=== PATIENT | male | born 1945 | race Caucasian/White ===

== ENCOUNTER 2017-11-27 08:26 | Inpatient (IN) | payer OTHER ==
[~2017-11-27] VITALS: Ht 182.9 cm; Wt 83.5 kg
--- NOTE | 2017-11-27 09:45 | ED UPPER/LOWER EXTREMITY COMPL ---
History of Present Illness General Chief Complaint: Upper Extremity Problem Stated Complaint: ELBOW PAIN Source: patient Exam Limitations: no limitations Allergies Coded Allergies: No Known Allergies (11/27/17) Reconcile Medications Sulfamethoxazole/Trimethoprim (Sulfamethoxazole-Tmp Ds Tablet) (Unknown Strength ) TABLET (Unknown Dose) . (Reported) Triage Note: LEFT ELBOW PAIN AND REDNESS. STATES HE WENT ON A [address] AND HAD HIS ARM ON THE WINDOW THE ENTIRE TIME. AFTERWARDS THE ARM BECAME RED AND PAINFUL. WENT TO WALK IN ON THE AND TRIED TO DRAIN IT BUT GOT LITTLE FLUID AND RX'D WITH BACTRIM. STATES HE HAS BEEN ON THE BACTRIM SINCE SATURDAY NIGHT. STATES IT HAS GOTTEN MORE REDNESS WITH SWELLING Triage Nurses Notes Reviewed? yes Onset: Gradual Duration: day(s): Timing: recent history Severity: moderate Pain/Injury Location: Left: Elbow. HPI: 72yo male presents to ED complaining of painful swelling to left elbow with surrounding redness worsening over the past 2 days. Patient states that he went on a long trip and had his left arm resting on the window and believes the symptoms started after this. Patient was seen in urgent care 2 days ago, swelling to elbow was drained with minimal fluid drained. Patient was started on Bactrim antibiotics. Patient reports increasing redness to the skin above and below elbow swelling since Saturday. Patient describes area as painful and warm. Patient also reporting generalized weakness for 2 days. Patient denies fevers, chills, malaise, vomiting, abdominal pain. (Magi LUTHER,Bhavna Mclaughlin) Vital Signs & Intake/Output Vital Signs & Intake/Output Vital Signs Date Time Temp Pulse Resp B/P B/P Pulse O2 O2 Flow FiO2 Mean Ox Delivery Rate 11/27 1116 99.9 65 20 155/74 97 Room Air 11/27 0838 99.6 71 20 131/93 97 Room Air (Sadie ALONSO,Norman Lorenzo) Past History Travel History Traveled to [place] past 21 day No Medical History Any Pertinent Medical History? none Tetanus Vaccine: Surgical History Surgical History: non-contributory Psychosocial History What is your primary language Japanese Tobacco Use: Quit >30 days ago ETOH Use: occasional use Illicit Drug Use: denies illicit drug use Family History Hx Contributory? No (Magi LUTHER,Bhavna Mclaughlin) Review of Systems Review of Systems Constitutional: Reports: see HPI. EENTM: Reports: no symptoms. Respiratory: Reports: no symptoms. Cardiovascular: Reports: no symptoms. Gastrointestinal/Abdominal: Reports: no symptoms. Genitourinary: Reports: no symptoms. Musculoskeletal: Reports: see HPI. Skin: Reports: see HPI. Neurological/Psychological: Reports: no symptoms. Hematologic/Endocrine: Reports: no symptoms. Immunological: Reports: no symptoms. All Other Systems: Reviewed and Negative (Magi LUTHER,Bhavna Mclaughlin) Physical Exam Physical Exam General Appearance: well developed/nourished, no apparent distress, alert, awake Head: atraumatic, normal appearance Eyes: Bilateral: normal appearance. Ears, Nose, Throat: hearing grossly normal Neck: normal inspection, supple, full range of motion Cardiovascular/Respiratory: normal breath sounds, normal peripheral pulses, regular rate/rhythm, no respiratory distress Peripheral Pulses: 2+ radial (R), 2+ radial (L) Back: normal inspection, normal range of motion Shoulder Left: normal range of motion, normal inspection Shoulder Right: normal range of motion, normal inspection Elbow Left: +swelling, erythema, tenderness, and fluctuance to posterior elbow with surrounding erythema and warmth to upper arm and forearm Elbow Right: normal range of motion, normal inspection Hand Left: mild swelling to hand present without significant erythema Hand Right: normal inspection, normal range of motion Neurologic/Tendon: normal sensation, normal motor functions, normal tendon functions Skin: see LUE exam above (Magi LUTHER,Bhavna Mclaughlin) Progress Differential Diagnosis: cellulitis, contusion, gout, septic arthritis, bursitis, osteomyelitis Diagnostic Imaging: Viewed by Me: Radiology Read. Discussed w/RAD: Radiology Read. Radiology Impression: PATIENT: KODY GU PRESENT AGE: 72 PATIENT ACCOUNT NO: [id number] : 44 LOCATION: [facility] ORDERING PHYSICIAN: Bhavna LUTHER SERVICE DATE: 11/27/17 EXAM TYPE: RAD - XRY-ELBOW 3 OR MORE VIEWS, L EXAMINATION: XR ELBOW, LEFT CLINICAL INFORMATION: Left elbow swelling with surrounding cellulitis. COMPARISON: None. TECHNIQUE: AP, lateral, and oblique views of the left elbow. FINDINGS: There is normal alignment of the osseous structures. No fractures are demonstrated. Bone mineralization is normal. No effusions are noted anterior or posterior to the distal humerus. There is an olecranon bony spur. There is soft tissue swelling around the olecranon, which may be consistent with bursitis. There are no radiodense foreign bodies. IMPRESSION: 1. There are no acute fractures or subluxations. No acute effusions are seen. 2. Soft tissue fullness around the olecranon is consistent with bursitis. DICTATED BY: Bry Peters MD DATE/TIME DICTATED:11/27/171054 WAREHOUSE MANAGER:YODIT DATE/TIME TRANSCRIBED:1054 CONFIDENTIAL, DO NOT COPY WITHOUT APPROPRIATE AUTHORIZATION. < Electronically signed in Other Vendor System> SIGNED BY: Bry Peters MD 105 (Magi LUTHER,Bhavna Mclaughlin) Plan of Care: Orders Procedure Date/time Status CBC WITHOUT DIFFERENTIAL 11/28 0600 Active BASIC ELECTROLYTES PLUS BUN&CR 11/28 0600 Active Regular Diet 11/27 D Active Pathway - chart 11/27 1141 Active House Staff 11/27 1141 Active Patient Data 11/27 1141 Active Patient Data 11/27 1137 Active Misc Message 11/27 1128 Active ED Holding Orders 11/27 1128 Active Admit to inpatient 11/27 1128 Active Vital Signs 11/27 1128 Active Code Status 11/27 1128 Active BLOOD CULTURE 11/27 0955 Active LACTIC ACID 11/27 0955 Complete COMPREHENSIVE METABOLIC PANEL 11/27 0955 Complete CBC WITHOUT DIFFERENTIAL 11/27 0955 Complete Intake & Output 11/27 0942 Active VTE Mechanical Prophylaxis 11/27 UNK Active Current Medications Sig/Catherine Start time Last Medication Dose Stop Time Status Admin Enoxaparin Sodium 0 .STK-MED ONE 11/27 1258 CAN (Lovenox) Sodium Chloride 1,000 ML ONCE ONE 11/27 1000 AC 11/27 (Normal Saline 0.9%) 11/27 1639 1035 Laboratory Tests 11/27/17 1255: Lactic Acid Cancelled 11/27/17 1012: Anion Gap 13, Estimated GFR > 60, BUN/Creatinine Ratio 12.5, Glucose 111 H, Lactic Acid 1.9, Calcium 9.3, Total Bilirubin 2.0 H, AST 16 L, ALT 14 L, Alkaline Phosphatase 70, Total Protein 7.4, Albumin 4.1, Globulin 3.3, Albumin/ Globulin Ratio 1.2, CBC w Diff MAN DIFF ORDERED, RBC 3.83 L, MCV 99.6 H, MCH 34.6 H, MCHC 34.8, RDW 14.0, MPV 7.2 L, Gran % 85.4 H, Lymphocytes % 7.8 L, Monocytes % 6.0, Eosinophils % 0.1, Basophils % 0.7, Absolute Granulocytes 14.3 H, Segmented Neutrophils 82 H, Band Neutrophils 2, Absolute Lymphocytes 1.3, Lymphocytes 11 L, Monocytes 5, Absolute Monocytes 1.0 H, Absolute Eosinophils 0, Absolute Basophils 0.1, Platelet Estimate VERIFIED BY SMEAR, Normocytic RBCs VERIFIED, Normochromic RBCs VERIFIED Microbiology 11/27 1032 BLOOD: Blood Culture - RECD 11/27 1020 BLOOD: Blood Culture - RECD Patient has spreading cellulitis despite use of oral antibiotics. Cellulitis is spreading from elbow to upper left arm as well as left forearm. Patient also has white count of 16. This patient likely requires several days of IV antibiotics and hospital admission. Spoke with case management who recommended for admission. Spoke with hospitalist Dr. Singh regarding this patient. She agrees with plan for general medicine admission for IV antibiotics, follow-up of blood cultures, repeat labs. She recommends orthopedic consult for drainage of bursitis. Awaiting orthopedic consult. Dr. Noel present to evaluate this patient. Spoke with Dr. De León who can consult the patient tomorrow for possible drainage if indicated. (Magi LUTHER,Bhavna Mclaughlin) (Sadie ALONSO,Norman Lorenzo) Departure Departure Disposition: STILL A PATIENT Condition: Stable Clinical Impression Primary Impression: Cellulitis Qualifiers: Site of cellulitis: extremity Site of cellulitis of extremity: upper extremity Laterality: left Qualified Code: L03.114 - Cellulitis of left upper limb Secondary Impressions: Bursitis Qualifiers: Bursitis location: elbow Elbow bursitis location: unspecified Laterality: left Qualified Code: M70.32 - Other bursitis of elbow, left elbow Referrals: Monika ALONSO,Christopher Tang (PCP/Family) Departure Forms: Customer Survey General Discharge Information Admission Note Spoke With: Ellen ALONSO,Gypsy Damon Documentation of Exam: Documentation of any treatments & extenuating circumstances including Concerns Regarding Discharge (functional status, medication knowledge or non-compliance, living conditions, etc.) that warrant an admission rather than observation: [ Failed outpatient cellulitis requiring IV antibiotics, follow up with blood cultures, ] repeat labs, bursitis requiring orthopedic consult and drainage, possible ID consult, premature discharge medically unsafe (Magi LUTHER,Bhavna Mclaughlin) PA/DISH UP PERSON Co-Sign Statement Statement: ED Attending supervision documentation- [X] I saw and evaluated the patient. I have also reviewed all the pertinent lab results and diagnostic results. I agree with the findings and the plan of care as documented in the PA's/DISH UP PERSON's documentation. Patient presents for evaluation of worsening infection over the left arm and elbow despite outpatient antibiotic treatment. Physical examination reveals a septic olecranon bursitis with a diffuse cellulitis. [] I have reviewed the ED Record and agree with the PA's/DISH UP PERSON's documentation. [] Additions or exceptions (if any) to the PAs/DISH UP PERSON's note and plan are summarized below: [] (Sadie ALONSO,Norman Lorenzo)
[2017-11-27 10:19] LABS: ABSOLUTE BASOPHIL COUNT 0.1 /CUMM (0.0-0.2); ABSOLUTE EOSINOPHIL COUNT 0 /CUMM (0.0-0.7); ABSOLUTE GRANULOCYTE CT 14.3 /CUMM (1.4-6.5); ABSOLUTE LYMPH COUNT 1.3 /CUMM (1.2-3.4); BASOPHIL % 0.7 % (0.0-2.0); EOSINOPHIL % 0.1 % (0-5); GRANULOCYTE % 85.4 % (42.2-75.2); HEMATOCRIT 38.1 % (42-52); MEAN CORPUSCULAR HGB 34.6 PG (27.0-31.0); MEAN CORPUSCULAR HGB CONC 34.8 G/DL (33.0-37.0); MEAN CORPUSCULAR VOLUME 99.6 FL (80.0-94.0); MEAN PLATELET VOLUME 7.2 FL (7.4-10.4); PLATELET COUNT 300 /CUMM (130-400); RED BLOOD CELL CT 3.83 /CUMM (4.70-6.10); WHITE BLOOD CELL COUNT 16.8 /CUMM (4.8-10.8)
[2017-11-27] MEDS ORDERED: SULFAMETHOXAZO1 EAC1 (10:26)
--- NOTE | 2017-11-27 10:59 | RADIOLOGY REPORT ---
EXAMINATION: XR ELBOW, LEFT CLINICAL INFORMATION: Left elbow swelling with surrounding cellulitis. COMPARISON: None. TECHNIQUE: AP, lateral, and oblique views of the left elbow. FINDINGS: There is normal alignment of the osseous structures. No fractures are demonstrated. Bone mineralization is normal. No effusions are noted anterior or posterior to the distal humerus. There is an olecranon bony spur. There is soft tissue swelling around the olecranon, which may be consistent with bursitis. There are no radiodense foreign bodies. IMPRESSION: 1. There are no acute fractures or subluxations. No acute effusions are seen. 2. Soft tissue fullness around the olecranon is consistent with bursitis.
--- NOTE | 2017-11-27 11:40 | History & Physical ---
Itzel ALONSO,[facility] 11/27/17 1139: General Information and HPI MD Statement: I have seen and personally examined KODY GU and documented this H&P. The patient is a 72 year old M who presented with a patient stated chief complaint of left elbow pain. Source of Information: patient, family, old records Exam Limitations: no limitations History of Present Illness: Mr. Gu is a 72-year-old gentleman with past medical history of recent abdominal hernia repair at the [facility] (11/18/2017) who presented to the emergency department at [facility] on 11/27/2017 complaining of left elbow pain and weakness. Patient states that he went to [facility] on 11/25/2017 wherehe was diagnosed with cellulitis of the left upper limb. The attempted to aspirate the joint and only were able to tap a few mL of solution. He was prescribed Bactrim 165621 mg twice a day for 7 days. Patient states that since being discharged although his pain has got slightly better he continues to experience weakness. At the time of our clinical interaction the patient endorsed left elbow pain that was rated at a 5 out of 10 in severity (previously rated at a 9 out of 10 in severity). Given the fact that he is failed to significantly improve his prompted him to come to the emergency department for additional workup. Patient does state that on 11/21 he spent a considerable amount of time in his motor vehicle as he drove up to [place]. He states that his left elbow had been immobile due to this car journey (over six hours of travel, elbow on a hard surface in the car). At the time of our clinical interaction he denied any fever, chills, nausea, vomiting he did endorse some weakness. He denied any chest pain or chest discomfort denied any shortness of breath or cough he denied any adverse side effects from his antibiotic previously prescribed. He is on no prescribed medications. . Prior to undergoing his operation he underwent a complete preop evaluation which he reports was WNL. Patient's primary care physician is Dr. Hassan. Allergies/Medications Allergies: Coded Allergies: No Known Allergies (11/27/17) Compliance With Home Meds: GOOD Past History Travel History Traveled to [place] past 21 day No Medical History Tetanus Vaccine: Surgical History Surgical History: non-contributory Past Family/Social History Psychosocial History Where do you live? Home Who Do You Live With? spouse Services at Home: None Primary Language: Romansh Smoking Status: Former Smoker ETOH Use: occasional use, Daily Use. 2 glasses of wine daily Illicit Drug Use: denies illicit drug use Functional Ability ADLs Independent: dressing, eating, toileting, bathing. Ambulation: independent IADLs Independent: shopping, housework, finances, food prep, telephone, transportation , medication admin. Employment History Employment Retired Review of Systems Review of Systems Constitutional: Reports: weakness. Exam & Diagnostic Data Last 24 Hrs of Vital Signs/I&O Vital Signs Date Time Temp Pulse Resp B/P B/P Pulse O2 O2 Flow FiO2 Mean Ox Delivery Rate 11/27 1116 99.9 65 20 155/74 97 Room Air 11/27 0838 99.6 71 20 131/93 97 Room Air Intake & Output 11/27 1600 11/27 0800 11/27 0000 Intake Total Output Total Balance Patient 83.461 kg Weight Weight Reported by Patient Measurement Method Physical Exam General Appearance Alert, Oriented X3, Cooperative Skin No Rashes Skin Temp/Moisture Exam: Warm/Dry Sepsis Skin Exam (color): Normal for Ethnicity HEENT PERRLA, EOMI, Mucous Membr. moist/pink Neck Supple Cardiovascular Normal S1, Normal S2 Lungs Clear to Auscultation Abdomen Normal Bowel Sounds, Soft, No Tenderness, Hernia Scar. Clean, dry intact , so strike through. Slight protrusion Neurological Normal Gait, Normal Speech, Strength at 5/5 X4 Ext, Normal Tone Extremities No Edema, Left Bursa inflamed. Erythematous, extending towards axilla and forearm. Decreased ROM of left UE. Radial Pulse WNL. Sensation Intact Body Front and Back (Adult) 1) surgical scar 2) Bursa inflamed. Erythematous. Tenderness on patpation. Decreased ROM. Last 24 Hrs of Labs/Shailesh: Laboratory Tests 11/27/17 1012: Anion Gap 13, Estimated GFR > 60, BUN/Creatinine Ratio 12.5, Glucose 111 H, Lactic Acid 1.9, Calcium 9.3, Total Bilirubin 2.0 H, AST 16 L, ALT 14 L, Alkaline Phosphatase 70, Total Protein 7.4, Albumin 4.1, Globulin 3.3, Albumin/ Globulin Ratio 1.2, CBC w Diff MAN DIFF ORDERED, RBC 3.83 L, MCV 99.6 H, MCH 34.6 H, MCHC 34.8, RDW 14.0, MPV 7.2 L, Gran % 85.4 H, Lymphocytes % 7.8 L, Monocytes % 6.0, Eosinophils % 0.1, Basophils % 0.7, Absolute Granulocytes 14.3 H, Segmented Neutrophils 82 H, Band Neutrophils 2, Absolute Lymphocytes 1.3, Lymphocytes 11 L, Monocytes 5, Absolute Monocytes 1.0 H, Absolute Eosinophils 0, Absolute Basophils 0.1, Platelet Estimate VERIFIED BY SMEAR, Normocytic RBCs VERIFIED, Normochromic RBCs VERIFIED Microbiology 11/27 1032 BLOOD: Blood Culture - RECD 11/27 1020 BLOOD: Blood Culture - RECD Diagnostic Data Other Results SERVICE DATE: 11/27/17 EXAM TYPE: RAD - XRY-ELBOW 3 OR MORE VIEWS, L EXAMINATION: XR ELBOW, LEFT CLINICAL INFORMATION: Left elbow swelling with surrounding cellulitis. COMPARISON: None. TECHNIQUE: AP, lateral, and oblique views of the left elbow. FINDINGS: There is normal alignment of the osseous structures. No fractures are demonstrated. Bone mineralization is normal. No effusions are noted anterior or posterior to the distal humerus. There is an olecranon bony spur. There is soft tissue swelling around the olecranon, which may be consistent with bursitis. There are no radiodense foreign bodies. IMPRESSION: 1. There are no acute fractures or subluxations. No acute effusions are seen. 2. Soft tissue fullness around the olecranon is consistent with bursitis. DICTATED BY: Bry Peters MD Assessment/Plan Assessment: Mr. Gu is a 72-year-old gentleman with past medical history of recent abdominal hernia repair at the [facility] (11/18/2017) who presented to the emergency department at [facility] on 11/27/2017 complaining of left elbow pain and weakness. His presentation is concerning and warrants IV antibiotics given the fact that he likely a failed outpatient therapy with continued pain and increased WBC. In the ED the patient was covered empirically with Unasyn. IV antibiotics Unasyn. Patient has no risk factors for MRSA. Consider ID consultation for antibiotic guidance if remains febrile persistently leukocytotic Consider Orthopedic evaluation for joint aspiration. Elevate left elbow and encourage frequent movement. Occupational therapy. Warm compress to arm. Pain relief NSAIDs ibuprofen 600-800 mg up to 3 times a day. Gentle fluid hydration with normal saline 100 mL/hr X 1 bag. . CBC/BEP in AM Obtain joint aspiration results from [facility]. Heart healthy diet. DVT prophylaxis with Lovenox regular Patient is full code. . As Ranked By This Provider Problem List: 1. Bursitis Qualifiers Bursitis location: elbow Elbow bursitis location: unspecified Laterality: left Qualified Code: M70.32 - Other bursitis of elbow, left elbow 2. Cellulitis Qualifiers Site of cellulitis: extremity Site of cellulitis of extremity: upper extremity Laterality: left Qualified Code: L03.114 - Cellulitis of left upper limb Core Measures/Misc (04/28) Acute Coronary Syndrome ACS Diagnosis: No Congestive Heart Failure Congestive Heart Failure Diagnosis No Cerebrovascular Accident CVA/TIA Diagnosis: No VTE (View Protocol) VTE Risk Factors Age>40 No Mechanical VTE Prophylaxis d/t N/A MechProphylax Ordered No VTE Pharm Prophylaxis d/t NA PharmProphylax ordered Sepsis (View protocol) Sepsis Present: No Kingsley Gerard MD 11/27/17 1609: General Information and HPI Allergies/Medications Home Med list Amoxicillin/Potassium Clav (Augmentin 875-125 Tablet) 875 MG-125 MG TABLET 1 TAB PO BID Skin infection . Naproxen 500 MG TABLET 500 MG PO BID PAIN CONTROL . Attending MD Review Statement Attending Statement Attending MD Statement: examined this patient, discuss w/resident/PA/RESEARCH LABORATORY SPECIALIST, agreed w/resident/PA/RESEARCH LABORATORY SPECIALIST, reviewed EMR data (avail), discussed with nursing, discussed with case mgmt, amended to note Attending Assessment/Plan: Patient is a very pleasant 72-year-old male with no significant medical history other than recent right inguinal hernia surgery about 10 days ago at the [facility]. Presents to the emergency room today for evaluation of right elbow swelling and erythema. Symptoms first began over the weekend. He went to an urgent care center earlier in the week and was prescribed Bactrim. He completed 2 days of therapy however according to the patient is swelling and erythema in the elbow progress so his convinced him to come to the ER for evaluation. He arrived afebrile hemodynamically stable. He is noted to have an area of erythema and swelling around the right elbow. Laboratory data revealed leukocytosis of 16.8. X-ray of the elbow showed no acute fracture or subluxation. No acute effusions noted. It did show soft tissue fullness around the olecranon consistent with bursitis. He was started on IV Unasyn by the ER and referred to the inpatient medical service for further management. The ER PA consulted the ortho service and reported that they would be available for consultation tomorrow. On examination is resting comfortably not in any acute distress. Denies any significant pain. On examination he does have soft tissue swelling of the olecranon process. it is erythematous and some of the erythema as a spreading along the lower aspect of the upper arm and upper aspect of the forearm. There is some erythema over the antecubital area as well. His right inguinal hernia surgical site is intact with a well-healing wound. There is however some swelling that is nonreducible and nontender. Problems: 1. Cellulitis of left upper extremity. 2. Bursitis left olecranon process. 3. Recent right inguinal hernia surgery. Plan: -Admit to inpatient medical service for further management. -His erythema and leukocytosis do raise concern for an infectious process. -Aspiration at the urgent care center was unsuccessful for any significant fluid. Imaging does not reveal any significant fluid collection. -Continue empiric antibiotic therapy with IV Unasyn. -Begin patient on nonsteroidal anti-inflammatory therapy with naproxen 500 mg orally twice daily. -Patient has no history of gout. Check uric acid level. -Print Developer Automatic patient on joint protection. -If symptoms persist despite above therapy consider orthopedic consultation for decompression of the bursal space.
[2017-11-27 14:38] VITALS: BP 140/88
[2017-11-27 16:00] VITALS: BP 138/70
--- NOTE | 2017-11-27 20:19 | Cons- Orthopedic ---
General Information and HPI Consulting Request Date of Consult: 11/27/17 Requested By: Kingsley Gerard MD Reason for Consult: Left elbow septic olecranon bursitis. Source of Information: patient Exam Limitations: no limitations History of Present Illness: The patient is a 72-year-old [id number] retired male who presented to the emergency room here at [facility] earlier today with severe left elbow pain and restricted left elbow motion along with swelling and erythema about the olecranon region of the elbow with proximal and distal erythematous spread suggestive for a septic olecranon bursitis with overlying cellulitis. The patient's symptoms started spontaneously 2 days ago without history of injury or change in activity pattern. The patient does question whether a very long car ride that he took while leaning on the left elbow along with vibration and bouncing while traveling in the car has anything to do with the development of his left elbow symptoms. The patient went to the [facility] urgent care facility later on the day that he developed symptoms. By the patient's report attempt was made to aspirate the olecranon bursa but no fluid could be aspirated with the needle used. No type of culture material was sent to the lab for analysis. The patient was started empirically on oral antibiotics (specifics not known to me at the current time). The patient's symptoms worsened as opposed to improving on oral antibiotics. He had increasing swelling and erythema of the olecranon region of the elbow. This was felt with any type of direct pressure to the elbow. He was also experiencing a general sense of restricted elbow motion and stiffness related to the swelling and distention of the olecranon bursa. The patient did not experience any fevers or chills or night sweats or malaise at any time. With ongoing symptoms the patient presented to the [facility] emergency room earlier today. There was definite consideration that this was a septic olecranon bursitis. Given the clinical picture including an elevated white blood cell count of 16+ thousand along with erythematous spread of the cellulitis on the skin it was felt by the emergency room staff as well as the hospitalist medical staff at the patient should be admitted for IV antibiotics. Consideration was also made to have the olecranon bursa drained with an I&D prompting referral for orthopedic consultation. By the time I was called for consultation the patient had unfortunately already been started on IV antibiotics and plans were well underway for admitting him to the hospital. I had suggested that perhaps I would perform an I&D in the office and packed the wound and place him on oral antibiotics instead of having the patient admitted for IV antibiotics and see how things go and potentially admit him if he did not respond to the I&D and oral antibiotics. It was felt again by the medical staff involved who were here on site and able to physically evaluate the patient in person that it would be best to admit the patient for IV antibiotics as had been planned earlier in the day. I did indicate that I would be happy to consult on the patient and perform an I&D of the septic olecranon bursa at the end of my work day since the patient was already being admitted and had already been started on IV antibiotics. The patient reports to me that he is feeling somewhat better since being admitted and started on IV antibiotics. He believes that swelling about the elbow and forearm and distal arm has diminished slightly. He believes the erythema that he was experiencing was showing signs of diminishing as well. The patient denies any prior significant injuries or symptoms or problems otherwise involving the left elbow in the past. Allergies/Medications Allergies: Coded Allergies: No Known Allergies (11/27/17) Home Med List: Sulfamethoxazole/Trimethoprim (Sulfamethoxazole-Tmp Ds Tablet) (Unknown Strength ) TABLET (Unknown Dose) . (Reported) Current Medications: Current Medications Sig/Catherine Start time Last Medication Dose Route Stop Time Status Admin Acetaminophen 0 .STK-MED ONE 11/27 1119 DC PO Acetaminophen 650 MG ONCE ONE 11/27 1115 DC 11/27 PO 11/27 1116 1115 Ampicillin Sodium/ 3,000 MG Q6 11/27 1800 AC 11/27 Sulbactam Sodium IV 1802 Sodium Chloride 100 ML Ampicillin Sodium/ 0 .STK-MED ONE 11/27 1004 DC Sulbactam Sodium .ROUTE Ampicillin Sodium/ 3,000 MG ONCE ONE 11/27 1000 DC 11/27 Sulbactam Sodium IV 11/27 1029 1035 Sodium Chloride 100 ML Enoxaparin Sodium 40 MG DAILY 11/27 1345 AC SC Enoxaparin Sodium 0 .STK-MED ONE 11/27 1258 CAN SC Enoxaparin Sodium 40 MG DAILY 11/27 1145 DC SC Naproxen 500 MG BID 11/27 2100 AC PO Sodium Chloride 1,000 ML ONCE ONE 11/27 1000 DC 11/27 IV 11/27 1639 1035 Past History Medical History Blood Transfusion Hx: No Neurological: NONE EENT: NONE Cardiovascular: NONE Respiratory: NONE Gastrointestinal: NONE Hepatic: NONE Renal: NONE Musculoskeletal: BACK SURGERY Psychiatric: NONE Endocrine: NONE Blood Disorders: NONE Cancer(s): NONE BLUNGER/Reproductive: NONE Surgical History Pertinent Surgical History: HERNIA REPAIR GROIN Psychosocial History Where Do You Live? Home Who Do You Live With? spouse Services at Home: None Primary Language: Liberian Smoking Status: Former Smoker ETOH Use: occasional use, Daily Use. 2 glasses of wine daily Illicit Drug Use: denies illicit drug use Functional Ability ADLs Independent: dressing, eating, toileting, bathing. Ambulation: independent IADLs Independent: shopping, housework, finances, food prep, telephone, transportation , medication admin. Employment History Employment: Retired Exam & Diagnostic Data Vital Signs and I&O Vital Signs Date Time Temp Pulse Resp B/P B/P Pulse O2 O2 Flow FiO2 Mean Ox Delivery Rate 11/27 1600 98.9 87 16 138/70 11/27 1438 97.8 76 18 140/88 98 Room Air 11/27 1322 98.3 66 18 126/60 99 Room Air 11/27 1116 99.9 65 20 155/74 97 Room Air 11/27 0838 99.6 71 20 131/93 97 Room Air Intake & Output 11/27 1600 11/27 0800 11/27 0000 11/26 1600 11/26 0800 11/26 0000 Intake Total Output Total Balance Patient 184 lb Weight Weight Reported by Patient Measurement Method Physical Exam: The patient is a pleasant, cooperative, well-nourished and well-developed healthy-appearing white male resting comfortably in bed in no apparent distress. He is awake and alert and oriented 3. Speech is normal. Affect is appropriate. He is afebrile on review of his vital signs. Examination of the left upper extremity shows intense erythema and moderate tense swelling of the olecranon bursa. There is some surrounding soft tissue swelling from the proximal forearm distally to the distal arm proximally. There is faint erythema noted variably about the proximal forearm as well as medial elbow and extending up along the distal medial arm roughly correction to the shoulder. No ecchymosis. No muscle atrophy. No visual deformity. The skin appears to be intact including the skin directly over and about the olecranon region of the elbow. There is mild to moderate tennis to palpation along with fluctuance on palpation of the olecranon bursa. No meaningful tenderness on palpation elsewhere in the extremity. Elbow extension limited slightly by swelling and stiffness and elbow flexion limited to about 110 degrees related to the same. Forearm rotation motion is well maintained. Wrist and digit motion is well maintained. No instability on stress testing of the elbow ligaments. Motor and sensory function are grossly intact distally. Radial and ulnar pulses 2+. Capillary refill is brisk. Last 24 Hours of Labs: Laboratory Tests 11/27 11/27 1255 1012 Chemistry Sodium (137 - 145 mmol/L) 134 L Potassium (3.5 - 5.1 mmol/L) 3.9 Chloride (98 - 107 mmol/L) 96 L Carbon Dioxide (22 - 30 mmol/L) 26 Anion Gap (5 - 16) 13 BUN (9 - 20 mg/dL) 10 Creatinine (0.7 - 1.2 mg/dL) 0.8 Estimated GFR (>60 ml/min) > 60 BUN/Creatinine Ratio (7 - 25 %) 12.5 Glucose (65 - 99 mg/dL) 111 H Lactic Acid (0.7 - 2.1 mmol/L) Cancelled 1.9 Uric Acid (3.5 - 8.5 mg/dL) 5.6 Calcium (8.4 - 10.2 mg/dL) 9.3 Total Bilirubin (0.2 - 1.3 mg/dL) 2.0 H AST (17 - 59 U/L) 16 L ALT (21 - 72 U/L) 14 L Alkaline Phosphatase (< 127 U/L) 70 Total Protein (6.3 - 8.2 g/dL) 7.4 Albumin (3.5 - 5.0 g/dL) 4.1 Globulin (1.9 - 4.2 gm/dL) 3.3 Albumin/Globulin Ratio (1.1 - 2.2 %) 1.2 Hematology CBC w Diff MAN DIFF ORDERED WBC (4.8 - 10.8 /CUMM) 16.8 H RBC (4.70 - 6.10 /CUMM) 3.83 L Hgb (14.0 - 18.0 G/DL) 13.3 L Hct (42 - 52 %) 38.1 L MCV (80.0 - 94.0 FL) 99.6 H MCH (27.0 - 31.0 PG) 34.6 H MCHC (33.0 - 37.0 G/DL) 34.8 RDW (11.5 - 14.5 %) 14.0 Plt Count (130 - 400 /CUMM) 300 MPV (7.4 - 10.4 FL) 7.2 L Gran % (42.2 - 75.2 %) 85.4 H Lymphocytes % (20.5 - 51.1 %) 7.8 L Monocytes % (1.7 - 9.3 %) 6.0 Eosinophils % (0 - 5 %) 0.1 Basophils % (0.0 - 2.0 %) 0.7 Absolute Granulocytes (1.4 - 6.5 /CUMM) 14.3 H Segmented Neutrophils (42.2 - 75.2 %) 82 H Band Neutrophils (0.0 - 5.0 %) 2 Absolute Lymphocytes (1.2 - 3.4 /CUMM) 1.3 Lymphocytes (20.5 - 51.1 %) 11 L Monocytes (1.7 - 9.3 %) 5 Absolute Monocytes (0.10 - 0.60 /CUMM) 1.0 H Absolute Eosinophils (0.0 - 0.7 /CUMM) 0 Absolute Basophils (0.0 - 0.2 /CUMM) 0.1 Platelet Estimate (ADEQUATE) VERIFIED BY SMEAR Normocytic RBCs VERIFIED Normochromic RBCs VERIFIED Imaging Results: Review of x-rays of the patient's left elbow performed today show no fractures, subluxations, or dislocations. The joint spaces are well-maintained. No obvious bone destructive or bone productive processes identified. The bone quality is good. The soft tissues do show distention posteriorly over the olecranon region of the elbow. Assessment/Plan Assessment/Plan Assessment: Left elbowseptic olecranon bursitis. Plan: Management options were discussed with the patient at length. Given the tense swelling and fluctuant nature of the olecranon bursa I did recommend performing a local I&D of the olecranon bursa to decompress the bursa and to try to get some fluid material to send to the lab for Gram stain and culture and sensitivity. The patient was amenable to this and this procedure was performed and outlined as below at the end of this note. Recommendations are made to apply ice packs to the elbow frequently to help with pain control following the I&D procedure performed today. The patient also likely require oral narcotic pain medication for this evening for the same. I would continue with empiric IV antibiotics and await results of Gram stain and culture and sensitivity to see if the antibiotic coverage needs to be changed. The patient is advised that I do suspect that the culture material that I did obtain will be sterile because he has been on oral antibiotics and since he was already started on IV antibiotics earlier today. The patient's dressing can be changed tonight or tomorrow if it soaks through but the iodoform gauze packing should be left in place if possible. If the patient is discharged from the hospital tomorrow I would like to see him for follow-up on Saturday for a repeat wound check and packing change. If the patient is not discharged from the hospital tomorrow the wound check and packing change can be performed by the Hospital surgical PAs. I will contact them this evening to inform them to keep an eye out to perform this on Saturday if the patient is still in the hospital. If the patient is discharged on Saturday or over the weekend I would like to see him early next week for a wound check and dressing change. Procedure: The olecranon region of the elbow was prepped sterilely with Betadine. The skin and superficial subcutaneous tissues were then infiltrated with a 25-gauge needle injecting about 5-6 mL of 0.25% lidocaine without epinephrine. Once adequate anesthesia was set up and I&D of the olecranon bursa was performed in standard fashion. This did include making a skin incision with a #11 scalpel blade which also extended down into the olecranon bursa. Once the bursa was perforated there was spontaneous drainage that was mostly bloody but did have some purulence in it. I did retrieve some of this fluid in a sterile syringe which I did ultimately bring down to the lab personally so that we can obtain a Gram stain and culture and sensitivity on the infected fluid. Additional I&D was performed by spreading the soft tissues with small scissors and dissecting around to open up and free up adhesions and loculations. While this was being performed the tissues were manually milked to help decompress and evacuate as much fluid and. On material as possible. I next placed some iodoform packing material into the wound and then applied gauze dressings followed by abdominal pad followed by gauze wrapping and an German bandage. The patient tolerated the procedure well. Problem List: 1. Cellulitis 2. Bursitis Consult Acknowledgment - Thank you for your consult request. Attending MD Review Statement Attending Statement Attending MD Statement: examined this patient, reviewed EMR data (avail), discussed w/nursing, reviewed images
[2017-11-27 20:54] VITALS: BP 142/82
[2017-11-28 06:26] LABS: ABSOLUTE BASOPHIL COUNT 0 /CUMM (0.0-0.2); ABSOLUTE EOSINOPHIL COUNT 0.2 /CUMM (0.0-0.7); ABSOLUTE GRANULOCYTE CT 7.2 /CUMM (1.4-6.5); ABSOLUTE LYMPH COUNT 1.6 /CUMM (1.2-3.4); ABSOLUTE MONOCYTE COUNT 0.7 /CUMM (0.10-0.60); BASOPHIL % 0.5 % (0.0-2.0); EOSINOPHIL % 1.6 % (0-5); GRANULOCYTE % 74.2 % (42.2-75.2); HEMATOCRIT 33.3 % (42-52); MEAN CORPUSCULAR HGB 34.7 PG (27.0-31.0); MEAN CORPUSCULAR HGB CONC 34.8 G/DL (33.0-37.0); MEAN CORPUSCULAR VOLUME 99.8 FL (80.0-94.0); MEAN PLATELET VOLUME 7.4 FL (7.4-10.4); PLATELET COUNT 289 /CUMM (130-400); RED BLOOD CELL CT 3.33 /CUMM (4.70-6.10); WHITE BLOOD CELL COUNT 9.6 /CUMM (4.8-10.8)
[2017-11-28 06:32] VITALS: BP 136/78
--- NOTE | 2017-11-28 06:49 | PN- Housestaff ---
Guilherme Rodriguez MD,[facility] 11/28/17 0649: Subjective Follow-up For: Cellulitis of left elbow Status post I and D Subjective: Patient visited today, was lying in bed comfortably in no acute distress, was alert and oriented. No fever or chills, no shortness of breathing, no chest pain, no other events. Had I and D yesterday, on IV antibiotics and responded well. Patient was requesting to be discharged. Pending culture results discharge planning in progress. Review of Systems Constitutional: Reports: see HPI. Objective Last 24 Hrs of Vital Signs/I&O Vital Signs Date Time Temp Pulse Resp B/P B/P Pulse O2 O2 Flow FiO2 Mean Ox Delivery Rate 11/28 0632 97.8 53 20 136/78 96 11/27 2054 98.3 64 18 142/82 98 Room Air 11/27 1600 98.9 87 16 138/70 11/27 1438 97.8 76 18 140/88 98 Room Air 11/27 1322 98.3 66 18 126/60 99 Room Air Intake & Output 11/28 1600 11/28 0800 11/28 0000 Intake Total 440 440 Output Total 300 400 Balance 140 40 Intake, IV 200 200 Intake, Oral 240 240 Output, Urine 300 400 Physical Exam General Appearance: Alert, Oriented X3, Cooperative, No Acute Distress Skin: Right elbow s/p I and D, improved swelling and erythema no obious pus draning. Skin Temp/Moisture Exam: Warm/Dry Sepsis Skin Exam (color): Normal for Ethnicity HEENT: Atraumatic, EOMI Cardiovascular: Normal S1, Normal S2 Lungs: Normal Air Movement Abdomen: Soft, No Tenderness Neurological: Normal Speech, Strength at 5/5 X4 Ext Current Medications: Current Medications Sig/Catherine Start time Last Medication Dose Route Stop Time Status Admin Ampicillin Sodium/ 3,000 MG Q6 11/27 1800 AC 11/28 Sulbactam Sodium IV 1117 Sodium Chloride 100 ML Enoxaparin Sodium 40 MG DAILY 11/27 1345 AC 11/28 SC 0806 Enoxaparin Sodium 0 .STK-MED ONE 11/27 1258 CAN SC Enoxaparin Sodium 40 MG DAILY 11/27 1145 DC SC Lactobacillus 1 CAP DAILY 11/28 1045 AC Acidophilus PO Naproxen 500 MG BID 11/27 2100 AC 11/28 PO 0806 Sodium Chloride 1,000 ML ONCE ONE 11/27 1000 DC 11/27 IV 11/27 1639 1035 Tramadol HCl 25 MG ONCE ONE 11/27 2014 DC 11/27 PO 11/27 Last 24 Hrs of Lab/Shailesh Results Last 24 Hrs of Labs/Mics: Laboratory Tests 11/28/17 0608: Anion Gap 8, Estimated GFR > 60, BUN/Creatinine Ratio 12.9, CBC w Diff NO MAN DIFF REQ, RBC 3.33 L, MCV 99.8 H, MCH 34.7 H, MCHC 34.8, RDW 14.0, MPV 7.4, Gran % 74.2, Lymphocytes % 16.1 L, Monocytes % 7.6, Eosinophils % 1.6, Basophils % 0.5, Absolute Granulocytes 7.2 H, Absolute Lymphocytes 1.6, Absolute Monocytes 0.7 H, Absolute Eosinophils 0.2, Absolute Basophils 0 11/27/17 1255: Lactic Acid Cancelled Microbiology 11/27 1925 EXTREMITIE: Culture & Sensitivity - CAN Cancelled: 11/27 1925 EXTREMITIE: Gram Stain - CAN Cancelled: 11/27 1924 EXTREMITIE: Gross Specimen Examination - RES 11/27 1924 EXTREMITIE: Gram Stain - RES Assessment/Plan Assessment: Mr. Loomis is a 72-year-old gentleman with past medical history of recent abdominal hernia repair at the [facility] (11/18/2017) presented to the emergency department at [facility] on 11/27/2017 complaining of left elbow pain and weakness. Patient visited a walking clinic couple of days ago and oral bactrim was administered with no improvement. His presentation at the time of admission was concerning and warranted IV antibiotics given the fact that he likely a failed outpatient therapy with continued pain and increased WBC. Patient was administered empirically with Unasyn which was continued during the admission. I and D was done with ortho consult. cultures were sent. Patient reported significant improvement in clinical condition. Pain control was done with Nsaids. Patient was stable to be discharged pending final cutlure results. Patient isfull code. DVT prophylaxis with Lovenox regular heart healthy diet. Problem List: 1. Cellulitis Pain Ratin Pain Location: RIGHT ELBOW Pain Goal: Pain 4 or less Pain Plan: ORAL NSAID Tomorrow's Labs & Rationales: nONE Rodrigo Pat MD 11/28/17 1422: Attending MD Review Statement Attending Statement Attending MD Statement: examined this patient, discuss w/resident/PA/PAINTER DECORATOR, agreed w/resident/PA/PAINTER DECORATOR, reviewed EMR data (avail), discussed with nursing Attending Assessment/Plan: Mr. Loomis is being admitted for left olecranon bursits - he is s/p incision and drainage by Ortho. No acute events overnight. Minimal pain at the site of I and D. On examination - vital signs are stable, WOUND draped, not soiled, surrounding erythema present with pitting edema 1+ Problems: 1. Cellulitis of left upper extremity 2. Bursitis left olecranon process - S/P Drainage 3. Recent right inguinal hernia surgery Plan: - Resolving erythema, however there is still some pitting edema - Patient eager to go home - however emphasized that patient may need to stay one more day - His erythema and leukocytosis are resolving - Continuing with IV Unasyn - will switch to oral antibiotics on discharge
--- NOTE | 2017-11-28 09:23 | PN- Orthopedic ---
See Addendum Subjective Subjective: No acute overnight events reported. Pt states that pain is lessening post i&d and he is noticing a resolution of erythema. He reports improved range of motion. He denies distal parasthesias. He denes fevers and flulike symptoms. He denies chest pain, shortness of breath and difficulty breathing. Objective Vital Signs and I&Os Vital Signs Date Time Temp Pulse Resp B/P B/P Pulse O2 O2 Flow FiO2 Mean Ox Delivery Rate 11/28 0632 97.8 53 20 136/78 96 11/27 2054 98.3 64 18 142/82 98 Room Air 11/27 1600 98.9 87 16 138/70 11/27 1438 97.8 76 18 140/88 98 Room Air 11/27 1322 98.3 66 18 126/60 99 Room Air 11/27 1116 99.9 65 20 155/74 97 Room Air Intake & Output 11/28 1600 11/28 0800 11/28 0000 11/27 1600 11/27 0800 11/27 0000 Intake Total 440 440 Output Total 300 400 Balance 140 40 Intake, IV 200 200 Intake, Oral 240 240 Output, Urine 300 400 Patient 184 lb Weight Weight Reported by Patient Measurement Method Physical Exam: General: Alert and oriented x3, no acute distress Cardiac: RRR, s1s2 Pulm: CTA bilaterally ABD: Non-tender, non-distended Extremities: Moves all extremities. LUE: neurovascular status intact, pulses palpable. Managing Cognitive Engineer intact. Some residual erythema noted distal to dressing, no red streak noted. Dressing dry and intact. Assessment/Plan Assessment/Plan This is a 72 year old male, 1 day s/p I&D left septic olecranon bursa. Cultures taken, pending. -await culture, anticipate chance of no growth due to antibioitics taken prior to culture -packing to be changed tomorrow, iodoform -Dressing change later today *Patient is anticipating discharge to home today. Will cooridinate plan of care with surgery and medicine prior to discharge, will likely need [facility] for wound care. Awaiting discussion with Dr. Cabrera regarding follow up with regard to packing change in the event patient is discharged today.
--- NOTE | 2017-11-28 16:21 | Discharge Summary ---
Hospital Course Allergies: Coded Allergies: No Known Allergies (11/27/17) Discharge Instructions Medications at Discharge Discharge Medications: Stop taking the following medications: Sulfamethoxazole/Trimethoprim (Sulfamethoxazole-Tmp Ds Tablet) (Unknown Strength ) TABLET Qty = 14 Start taking the following new medications: Amoxicillin/Potassium Clav (Augmentin 875-125 Tablet) 875 MG-125 MG TABLET 1 Tablet ORAL TWICE DAILY Qty = 14 No Refills Instructions: . Comments: NOT GIVEN Naproxen (Naproxen) 500 MG TABLET 500 Milligram ORAL TWICE DAILY Qty = 20 No Refills Instructions: . Comments: Last Taken: 11/29/17 Time: 0920
[2017-11-28 22:04] VITALS: BP 134/62
[2017-11-29 07:11] VITALS: BP 138/62
--- NOTE | 2017-11-29 07:14 | PN- Housestaff ---
Guliherme Rodriguez MD,[facility] 11/29/17 0714: Subjective Follow-up For: Cellulitis Subjective: Patient visited today, was lying in bed comfortably in no acute distress, was alert and oriented. No fever or chills, no shortness of breathing, no chest pain, no other events. Dressing and packing changed today, which revealed pus. Relative improvement in erythema and swelling and pain. Patient was discharged on oral Augmentin to complete a total 10 days. Review of Systems Constitutional: Reports: see HPI. Objective Last 24 Hrs of Vital Signs/I&O Vital Signs Date Time Temp Pulse Resp B/P B/P Pulse O2 O2 Flow FiO2 Mean Ox Delivery Rate 11/29 0711 97.8 56 20 138/62 98 11/28 2204 98.3 58 20 134/62 97 Room Air Intake & Output 11/29 1600 11/29 0800 11/29 0000 Intake Total 240 Output Total Balance 240 Intake, Oral 240 Physical Exam General Appearance: Alert, Oriented X3, Cooperative, No Acute Distress Skin: erythema, swelling of the left elbow, packing present at the site of incision, serosanguineous and possibly discharge at the time of packing change. Overall improved compared to yesterday Skin Temp/Moisture Exam: Warm/Dry Sepsis Skin Exam (color): Normal for Ethnicity HEENT: Atraumatic, EOMI Cardiovascular: Normal S1, Normal S2 Lungs: Clear to Auscultation, Normal Air Movement Abdomen: Soft, No Tenderness Extremities: No Edema Current Medications: Current Medications Sig/Catherine Start time Last Medication Dose Route Stop Time Status Admin Ampicillin Sodium/ 3,000 MG Q6 11/27 1800 AC 11/29 Sulbactam Sodium IV 0517 Sodium Chloride 100 ML Enoxaparin Sodium 40 MG DAILY 11/27 1345 AC 11/29 SC 0921 Lactobacillus 1 CAP DAILY 11/28 1045 AC 11/29 Acidophilus PO 0920 Naproxen 500 MG BID 11/27 2100 AC 11/29 PO 0920 Patient Medication 1 ED ONE ONE 11/28 1944 [facility] ED 11/28 1945 Assessment/Plan Assessment: Mr. Loomis is a 72-year-old gentleman with past medical history of recent abdominal hernia repair at the [facility] (11/18/2017) presented to the emergency department at on 11/27/2017 complaining of left elbow pain and weakness. Patient visited a walking clinic couple of days ago and oral bactrim was administered with no improvement. His presentation at the time of admission was concerning and warranted IV antibiotics given the fact that he likely a failed outpatient therapy with continued pain and increased WBC. Patient was administered empirically with Unasyn which was continued during the admission. I and D was done with ortho consult. cultures were sent but stayed negative that could be related dur church of antibiotics prior to I and D. Decision to start antibiotics was made based on the fact that PE didn't intended to delay treatment for the progressing infection. Patient reported significant improvement in clinical condition. Pain control was done with Nsaids. Patient was discharged on oral augmentin to complete a 10 day course. Patient was discharge with instruction to change dressing and packing daily and follow with ortho surgeron. Problem List: 1. Cellulitis Pain Ratin Pain Location: Left Elbow Pain Goal: Pain 4 or less Pain Plan: Continue current plan Tomorrow's Labs & Rationales: None Rodrigo Pat MD 11/29/17 1226: Attending MD Review Statement Attending Statement Attending MD Statement: examined this patient, discuss w/resident/PA/[employer]ANCE OFFICER, agreed w/resident/PA/[employer]ANCE OFFICER, discussed with family, reviewed EMR data (avail), discussed with nursing, discussed with case mgmt Attending Assessment/Plan: Mr. Loomis is being admitted for left olecranon bursits - he is s/p incision and drainage by Ortho. No acute events overnight. Minimal pain at the site of I and D. On examination - vital signs are stable, WOUND draped, not soiled, surrounding erythema present with pitting edema 1+ Problems: 1. Cellulitis of left upper extremity 2. Bursitis left olecranon process - S/P Drainage 3. Recent right inguinal hernia surgery Plan: - Resolving erythema, however there is still minimal pitting edema - Will discharge the patient on Oral Augmentin for 7 more days - cultures have been negative so far - it could possibly be becuase patient was on antibiotics in the past. Of note, patient was on Bactrim in the past. - Will have visiting home health nurse for dressing changes - Will need follow up with Dr. Cabrera early next week Saturday or Saturday.
--- NOTE | 2017-11-29 09:29 | PN- Orthopedic ---
See Addendum Subjective Subjective: pt sitting in bed, still with some left elbow discomfort but pain meds help. Deneis paresthsias. Denies cp/sob, fevers Objective Vital Signs and I&Os Vital Signs Date Time Temp Pulse Resp B/P B/P Pulse O2 O2 Flow FiO2 Mean Ox Delivery Rate 11/29 0711 97.8 56 20 138/62 98 11/28 2204 98.3 58 20 134/62 97 Room Air Intake & Output 11/29 1600 11/29 0800 11/29 0000 11/28 1600 11/28 0800 11/28 0000 Intake Total 240 580 440 440 Output Total 300 400 Balance 240 580 140 40 Intake, IV 100 200 200 Intake, Oral 240 480 240 240 Output, Urine 300 400 Physical Exam: gen- NAD resp-clear cardiac-RRR abd- soft, NT ext- left elbow dressing and packing changed. swelling with minimal surrounding erythema, purulent drainage. packed with 1/4in iodiform and covered with clean clinton dressing and wrapped in itz bandage. distal sensory and motor function intact. Current Medications: Current Medications Sig/Catherine Start time Last Medication Dose Route Stop Time Status Admin Ampicillin Sodium/ 3,000 MG Q6 11/27 1800 AC 11/29 Sulbactam Sodium IV 0517 Sodium Chloride 100 ML Enoxaparin Sodium 40 MG DAILY 11/27 1345 AC 11/29 SC 0921 Lactobacillus 1 CAP DAILY 11/28 1045 AC 11/29 Acidophilus PO 0920 Naproxen 500 MG BID 11/27 2100 AC 11/29 PO 0920 Patient Medication 1 ED ONE ONE 11/28 1944 [facility] 11/28 1945 Results Last 48 Hours of Labs: Laboratory Tests 11/28 11/27 0608 1255 Chemistry Sodium (137 - 145 mmol/L) 136 L Potassium (3.5 - 5.1 mmol/L) 3.7 Chloride (98 - 107 mmol/L) 103 Carbon Dioxide (22 - 30 mmol/L) 25 Anion Gap (5 - 16) 8 BUN (9 - 20 mg/dL) 9 Creatinine (0.7 - 1.2 mg/dL) 0.7 Estimated GFR (>60 ml/min) > 60 BUN/Creatinine Ratio (7 - 25 %) 12.9 Lactic Acid Cancelled Hematology CBC w Diff NO MAN DIFF REQ WBC (4.8 - 10.8 /CUMM) 9.6 RBC (4.70 - 6.10 /CUMM) 3.33 L Hgb (14.0 - 18.0 G/DL) 11.6 L Hct (42 - 52 %) 33.3 L MCV (80.0 - 94.0 FL) 99.8 H MCH (27.0 - 31.0 PG) 34.7 H MCHC (33.0 - 37.0 G/DL) 34.8 RDW (11.5 - 14.5 %) 14.0 Plt Count (130 - 400 /CUMM) 289 MPV (7.4 - 10.4 FL) 7.4 Gran % (42.2 - 75.2 %) 74.2 Lymphocytes % (20.5 - 51.1 %) 16.1 L Monocytes % (1.7 - 9.3 %) 7.6 Eosinophils % (0 - 5 %) 1.6 Basophils % (0.0 - 2.0 %) 0.5 Absolute Granulocytes (1.4 - 6.5 /CUMM) 7.2 H Absolute Lymphocytes (1.2 - 3.4 /CUMM) 1.6 Absolute Monocytes (0.10 - 0.60 /CUMM) 0.7 H Absolute Eosinophils (0.0 - 0.7 /CUMM) 0.2 Absolute Basophils (0.0 - 0.2 /CUMM) 0 04/18 1012 Chemistry Sodium (137 - 145 mmol/L) 134 L Potassium (3.5 - 5.1 mmol/L) 3.9 Chloride (98 - 107 mmol/L) 96 L Carbon Dioxide (22 - 30 mmol/L) 26 Anion Gap (5 - 16) 13 BUN (9 - 20 mg/dL) 10 Creatinine (0.7 - 1.2 mg/dL) 0.8 Estimated GFR (>60 ml/min) > 60 BUN/Creatinine Ratio (7 - 25 %) 12.5 Glucose (65 - 99 mg/dL) 111 H Lactic Acid (0.7 - 2.1 mmol/L) 1.9 Uric Acid (3.5 - 8.5 mg/dL) 5.6 Calcium (8.4 - 10.2 mg/dL) 9.3 Total Bilirubin (0.2 - 1.3 mg/dL) 2.0 H AST (17 - 59 U/L) 16 L ALT (21 - 72 U/L) 14 L Alkaline Phosphatase (< 127 U/L) 70 Total Protein (6.3 - 8.2 g/dL) 7.4 Albumin (3.5 - 5.0 g/dL) 4.1 Globulin (1.9 - 4.2 gm/dL) 3.3 Albumin/Globulin Ratio (1.1 - 2.2 %) 1.2 Hematology CBC w Diff MAN DIFF ORDERED WBC (4.8 - 10.8 /CUMM) 16.8 H RBC (4.70 - 6.10 /CUMM) 3.83 L Hgb (14.0 - 18.0 G/DL) 13.3 L Hct (42 - 52 %) 38.1 L MCV (80.0 - 94.0 FL) 99.6 H MCH (27.0 - 31.0 PG) 34.6 H MCHC (33.0 - 37.0 G/DL) 34.8 RDW (11.5 - 14.5 %) 14.0 Plt Count (130 - 400 /CUMM) 300 MPV (7.4 - 10.4 FL) 7.2 L Gran % (42.2 - 75.2 %) 85.4 H Lymphocytes % (20.5 - 51.1 %) 7.8 L Monocytes % (1.7 - 9.3 %) 6.0 Eosinophils % (0 - 5 %) 0.1 Basophils % (0.0 - 2.0 %) 0.7 Absolute Granulocytes (1.4 - 6.5 /CUMM) 14.3 H Segmented Neutrophils (42.2 - 75.2 %) 82 H Band Neutrophils (0.0 - 5.0 %) 2 Absolute Lymphocytes (1.2 - 3.4 /CUMM) 1.3 Lymphocytes (20.5 - 51.1 %) 11 L Monocytes (1.7 - 9.3 %) 5 Absolute Monocytes (0.10 - 0.60 /CUMM) 1.0 H Absolute Eosinophils (0.0 - 0.7 /CUMM) 0 Absolute Basophils (0.0 - 0.2 /CUMM) 0.1 Platelet Estimate (ADEQUATE) VERIFIED BY SMEAR Normocytic RBCs VERIFIED Normochromic RBCs VERIFIED Assessment/Plan Assessment/Plan 72yo M SP left elbow I&D for bursitis. stable. Cont abx- may switch to PO FU with Dr. Cabrera as outpatient Will need visiting nursing for daily dressing and packing change Pain management with PO meds OK to Dc to home today
[2017-11-29] MEDS ORDERED: AUGMENTIN 875-1 EACH PO ×2 (09:52→10:59)
[2017-11-29] MEDS ORDERED: NAPROXEN500 M2 PO ×2 (09:52→10:59)
--- NOTE | 2017-11-29 10:02 | Patient Discharge Instructions ---
Discharge Instructions General Discharge Information You were seen/treated for: Cellulitis of elbow Watch for these problems: Severe pain, fever, dizziness, shortness of breathing, chest pain or worsening of any other symptoms Do not soak the wound: Yes Daily wet to dry dressings: Yes (Follow instructions) Special Instructions: Please follow-up with your PCP within one week of discharge. Please follow with your orthopedic surgeon early next week. Your dressing will be changed by visiting nurse. Please take your medications as ordered. Diet Continue normal diet: Yes Activity Full Activity/No Limits: No Activity Self Limited: Yes Acute Coronary Syndrome Inclusion Criteria At DC or during hospital stay patient has or had the following: ACS DIAGNOSIS No Discharge Core Measures Meds if any: Prescribed or Continued at Discharge Meds if any: NOT Prescribed or Continued at Discharge Congestive Heart Failure Inclusion Criteria At DC or during hospital stay patient has or had the following: CHF DIAGNOSIS No Discharge Core Measures Meds if any: Prescribed or Continued at Discharge Meds if any: NOT Prescribed or Continued at Discharge Cerebrovascular accident Inclusion Criteria At DC or during hospital stay patient has or had the following: CVA/TIA Diagnosis No Discharge Core Measures Meds if any: Prescribed or Continued at Discharge Meds if any: NOT Prescribed or Continued at Discharge Venous thromboembolism Inclusion Criteria VTE Diagnosis No VTE Type NONE VTE Confirmed by (Test) NONE Discharge Core Measures - Per Current guidelines, there needs to be overlap - treatment for the first 5 days of Warfarin therapy. - If discharged on Warfarin prior to 5 days of - overlap therapy, the patient will need to be - assessed for post discharge needs including - *Post discharge parental anticoagulation - *Warfarin and/or parental anticoagulation education - *Follow up date to check INR post discharge At least 5 days overlap therapy as Inpatient No Meds if any: Prescribed or Continued at Discharge Note: Overlap Therapy is Warfarin and Anticoagulant Meds if any: NOT Prescribed or Continued at Discharge
--- NOTE | 2017-11-29 11:54 | Discharge Summary ---
Visit Information Visit Dates Admission Date: 11/27/17 Discharge Date: 11/29 Hospital Course Course Attending Physician: Kingsley Gerard MD Primary Care Physician: Monika ALONSO,[facility] Course: Mr. Loomis is a 72-year-old gentleman with past medical history of recent abdominal hernia repair at the [facility] (11/18/2017) presented to the emergency department at [facility] on 11/27/2017 complaining of left elbow pain and weakness. Patient visited a walking clinic couple of days ago and oral bactrim was administered with no improvement. His presentation at the time of admission was concerning and warranted IV antibiotics given the fact that he likely a failed outpatient therapy with continued pain and increased WBC. Patient was administered empirically with Unasyn which was continued during the admission. I and D was done with ortho consult. cultures were sent but stayed negative that could be related dur [place] of antibiotics prior to I and D. Decision to start antibiotics was made based on the fact that PE didn't intended to delay treatment for the progressing infection. Patient reported significant improvement in clinical condition. Pain control was done with Nsaids. Patient was discharged on oral augmentin to complete a 10 day course. Patient was discharge with instruction to change dressing and packing daily and follow with ortho surgeron. Allergies: Coded Allergies: No Known Allergies (11/27/17) Significant Procedures: I and D of left elbow Disposition Summary Disposition Principal Diagnosis: Left elbow cellulitis Additional Diagnosis: s/p inguinal hernia repair Discharge Disposition: home or self care Discharge Instructions General Discharge Information Code Status: Full Code Patient's Diet: Regular Patient's Activity: as tolerated Follow-Up Instructions/Appts: Please follow-up with your PCP within one week of discharge. Please follow with your orthopedic surgeon early next week. Your dressing and packing will be changed by visiting nurse as instructed in w10 form. Please take your medications as ordered. Medications at Discharge Discharge Medications: Stop taking the following medications: Sulfamethoxazole/Trimethoprim (Sulfamethoxazole-Tmp Ds Tablet) (Unknown Strength ) TABLET Qty = 14 Start taking the following new medications: Amoxicillin/Potassium Clav (Augmentin 875-125 Tablet) 875 MG-125 MG TABLET 1 Tablet ORAL TWICE DAILY Qty = 14 No Refills Instructions: . Comments: NOT GIVEN Naproxen (Naproxen) 500 MG TABLET 500 Milligram ORAL TWICE DAILY Qty = 20 No Refills Instructions: . Comments: Last Taken: 11/29/17 Time: 0920 Copies To: Monika ALONSO,Christopher Tang Attending MD Review Statement Documenting Attending: Rodrigo Pat MD
== END 2017-11-29 12:20 | disposition home health service (06) | DRG 603 ==
LOC: ERH 08:26 → ERHI 11:37 → 2NB 11:37 → ENRESERV 12:47 → ENTRNSPT 14:19 → EDTRNSPT 14:20 → EDTRNSPTSTS 14:20 → 2NB 14:27 → CMPTRNSPT 14:37 → ENPENDDIS 11-29 11:27 → 2NB 11-29 12:20
PROVIDERS: Physician Assistant; Student in an Organized Health Care Education/Training Program
PROC: 0R9M0ZX Drainage of Left Elbow Joint, Open Approach, Diagnostic (ICD-10-PCS; principal; 2017-11-27)
DX: L03.114 Cellulitis of left upper limb (principal); M71.122 Other infective bursitis, left elbow; Z87.891 Personal history of nicotine dependence
CPT/HCPCS: 2NBSP; 87070; 87075; 36592; 73080-LT; 82436; 87040; J1650